=== PATIENT | male | born 1940 | race Asian ===

== ENCOUNTER → 2018-01-05 | Day surgery (SDC) | payer MEDICARE ==
[~2018-01-05] MED LIST: ASA81 MG PO; COZAAR25 MG PO; DONEPEZIL PO; FENTANYL CITRATE/PF 100MCG/2 ML INJ ONE; LIDOCAINE HCL 2% LOCAL INJ 5 ML SDV VIAL INJ ONE; METFORMIN HCL500 MG PO; PROPOFOL IV EMULSION 10 MG/ML 20 ML VIAL ONE; RISPERDAL1 MG PO; TOUJEO SQ; VALPROIC A250 MG/53; VALPROIC ACID PO; VICODIN ES TAB1 EACH PO; Z.0.ATENOLOL100 MG PO; Z.0.FLOMAX0.4 MG PO; Z.0.GLIPIZIDE10 MG PO; Z.0.JANUMET 50-1,01 PO; Z.0.LANTUS100 UNIT/1 SQ; Z.0.LEXAPRO10 MG PO; Z.0.LIPITOR40 MG PO; Z.0.PRINIVIL20 MG PO; [UNRECOGNIZED DRUG - OTHER] PO
--- OUTSIDE RECORDS SUMMARY | 2018-01-05 13:53 | XMS REPORT | Clinical Summary ---
Author Author [facility] Address Unknown Phone Unavailable Care Team Providers Care Steno Typist Name Role Phone Brandi eKnny MD PCP Allergies No Known Allergies Current Medications Prescription Sig. Disp. Refills Start End Date Status Date escitalopram (LEXAPRO) 10 Take 10 mg by mouth Active MG tablet daily. losartan (COZAAR) 25 MG Take 25 mg by mouth Active tablet daily. metFORMIN (GLUCOPHAGE) Take 500 mg by mouth 2 Active 500 mg tablet (two) times a day with meals. atorvastatin (LIPITOR) 10 Take 10 mg by mouth Active MG tablet daily. atenolol (TENORMIN) 25 MG Take 25 mg by mouth Active tablet daily. aspirin (ECOTRIN) 81 MG Take 81 mg by mouth Active enteric coated tablet daily. risperiDONE (RisperDAL) 1 Take 1 mg by mouth daily. Active MG tablet valproic acid (DEPAKENE) Take 250 mg by mouth 4 05/16/20 Discontin 250 mg capsule (four) times a day. 17 ued insulin GLARGINE (TOUJEO Inject 20 Units under the 05/16/20 Discontin SOLOSTAR) 300 unit/mL skin daily. 17 ued (1.5 mL) insulin pen valproic acid (DEPAKENE) Take 2 capsules (500 mg 120 capsule 0 06/15/20 250 mg capsule total) by mouth 2 (two) 17 17 times a day for 30 days. Active Problems Problem Noted Date Sepsis 05/09/2017 Encounters Date Type Specialty Care Team Description 05/15/2017 Anesthesia Gastroenterology Erlinda Hickman MD Event 05/15/2017 Procedure Pass Gastroenterology 05/15/2017 Surgery Gastroenterology Mert Murcia EGD with PEG placement MD Jesus 05/10/2017 Procedure Pass Critical Care Medicine 05/09/2017 [facility] Critical [facility] Medicine Free SoilBolivar valentinLelaBony Shankar, Sepsis, due to - Encounter MD unspecified organism 05/16/2017 Link Braden MD (Primary Dx); Pneumonia due to infectious organism, unspecified laterality, unspecified part of lung; Seizure disorder; Oropharyngeal dysphagia after 01/04/2017 Immunizations Name Dates Previously Given Next Due FLUCELVAX QUAD PF (0.5mL 05/11/2017 syringe) Social History Tobacco Use Types Packs/Day Years Used Date Never Smoker Alcohol Use Drinks/Week oz/Week Comments No Sex Assigned at Date Recorded Not on file Last Filed Vital Signs Vital Sign Reading Time Taken Blood Pressure 163/68 05/16/2017 12:00 PM CDT Pulse 72 05/16/2017 1:00 PM CDT Temperature 36.8 C (98.3 F) 05/16/2017 7:00 AM CDT Respiratory Rate 24 05/16/2017 1:00 PM CDT Oxygen Saturation 93% 05/16/2017 1:00 PM CDT Inhaled Oxygen - - Concentration Weight 55.2 kg (121 lb 11.1 oz) 05/14/2017 5:00 AM CDT Height 152.4 cm (5') 05/09/2017 11:00 PM CDT Body Mass Index 23.77 05/14/2017 5:00 AM CDT Plan of Treatment Health Maintenance Due Date Last Done Comments SHINGRIX VACCINE (#1) 01/02/1988 ZOSTER VACCINE 1998 PNEUMOCOCCAL 2003 POLYSACCHARIDE VACCINE AGE 65 AND OVER PNEUMOCOCCAL-13 2003 INFLUENZA VACCINE 03/14/2018 05/11/2017 Procedures Procedure Name Priority Date/Time Associated Diagnosis Comments EGD with PEG placement 05/15/2017 Sepsis, due to 12:00 PM CDT unspecified organism EEG EXTENDED 41 - 60 MINS Routine 05/10/2017 Results for this 10:56 AM CDT procedure are in the results section. after 01/04/2017 Results * POC glucose (05/16/2017 11:47 AM) Only the most recent of 68 results within the time period is included. Component Value Ref Range POC glucose 148 (H) 65 - 99 mg/dL Comment: [facility] Notified RN Meter ID: [id number] Vp Legal Affairs: Floyd Holloway Specimen Performing Laboratory [facility] DEPARTMENT OF PATHOLOGY AND GENOMIC MEDICINE [address] [place] [id number] * Estimated GFR (05/16/2017 4:30 AM) Only the most recent of 10 results within the time period is included. Component Value Ref Range GFR Non Af Amer 72 mL/min/1.73 m2 GFR Af Amer 87 mL/min/1.73 m2 Comment: Chronic kidney disease: <60 mL/min/1.73m2 Kidney failure: <15 mL/min/1.73m2 The estimated GFR is calculated from the IDMS-traceable Modification of Diet in Renal Disease Equation. The accuracy of the calculation is poor when the creatinine is normal. Calculated values >90 mL/min/1.73m2 are not reported. This equation has not been validated in children (<18 years), women, the elderly (>70 years), or ethnic groups other than Caucasians and Americans. Specimen Performing Laboratory Plasma specimen [facility] DEPARTMENT OF PATHOLOGY AND GENOMIC MEDICINE [address] [place] [id number] * CBC with platelet and differential (05/16/2017 4:30 AM) Only the most recent of 8 results within the time period is included. Component Value Ref Range WBC 10.41 4.50 - 11.00 k/uL RBC 3.71 (L) 4.40 - 6.00 m/uL HGB 11.4 (L) 14.0 - 18.0 g/dL HCT 35.0 (L) 41.0 - 51.0 % MCV 94.3 82.0 - 100.0 fL MCH 30.7 27.0 - 34.0 pg MCHC 32.6 31.0 - 37.0 g/dL RDW - SD 48.5 37.0 - 55.0 fL MPV 10.1 8.8 - 13.2 fL Platelet count 297 150 - 400 k/uL Nucleated RBC 0.00 /100 WBC Neutrophils 52.0 39.0 - 69.0 % Lymphocytes 18.9 (L) 25.0 - 45.0 % Monocytes 20.5 (H) 0.0 - 10.0 % Eosinophils 6.2 (H) 0.0 - 5.0 % Basophils 0.6 0.0 - 1.0 % Immature granulocytes 1.8 (H)Comment: "Immature granulocytes" 0.0 - 1.0 % (promyelocytes, myelocytes, metamyelocytes) Specimen Performing Laboratory Blood [facility] DEPARTMENT OF PATHOLOGY AND GENOMIC MEDICINE [address] [place] [id number] * Basic metabolic panel (05/16/2017 4:30 AM) Only the most recent of 8 results within the time period is included. Component Value Ref Range Sodium 139 135 - 148 mEq/L Potassium 4.2 3.5 - 5.0 mEq/L Chloride 102 98 - 112 mEq/L CO2 24 24 - 31 mEq/L Anion gap 13 7 - 15 mEq/L Comment: Starting from November , anion gap calculation no longer incorporates potassium. Please note the change. BUN 18 8 - 23 mg/dL Creatinine 1.0 0.7 - 1.2 mg/dL Glucose 116 (H) 65 - 99 mg/dL Calcium 8.7 (L) 8.8 - 10.2 mg/dL Specimen Performing Laboratory Plasma specimen [facility] [place] [address] * XR Chest 1 Vw Portable (05/15/2017 5:44 PM) Only the most recent of 3 results within the time period is included. Specimen Performing Laboratory [facility] [address] [place] [address] Narrative Study:XR CHEST 1 VW PORTABLE History: Pneumonia COMPARISON: May 11, 2017 IMPRESSION: A single view of the chest.Retrocardiac atelectasis with possibly small left pleural effusion unchanged. No pneumothorax.Cardiac silhouette is normal.Visualized osseous structures arestable. [facility]-[id number] Procedure Note Interface, Radiology Results Incoming - 05/15/2017 5:52 PM CDT Study:XR CHEST 1 VW PORTABLE History: Pneumonia COMPARISON: May 11, 2017 IMPRESSION: A single view of the chest. Retrocardiac atelectasis with possibly small left pleural effusion unchanged. No pneumothorax. Cardiac silhouette is normal. Visualized osseous structures are stable. [facility]-[id number] * Magnesium level (05/15/2017 4:00 AM) Only the most recent of 5 results within the time period is included. Component Value Ref Range Magnesium 2.0 1.6 - 2.4 mg/dL Specimen Performing Laboratory Plasma specimen [facility] DEPARTMENT OF PATHOLOGY AND GENOMIC MEDICINE [address] [place] [id number] * Valproic acid level (05/15/2017 4:00 AM) Only the most recent of 5 results within the time period is included. Component Value Ref Range Valproic acid 69.0 50.0 - 100.0 ug/mL Comment: Therapeutic Range: 50 - 100 ug/mL Specimen Performing Laboratory Plasma specimen [facility] DEPARTMENT OF PATHOLOGY AND GENOMIC MEDICINE [address] [place] [address] * MRI Brain Wo Contrast (05/11/2017 9:55 PM) Specimen Performing Laboratory [facility] [address] [place] [address] Narrative EXAMINATION: MRI BRAIN WO CONTRAST CLINICAL HISTORY: seizure COMPARISON:CT brain dated May 09, 2017 TECHNIQUE: Multiplanar and multisequence MRI imaging of the brain was obtained without contrast. FINDINGS: Axial diffusion weighted images of the brain shows no diffusion restriction to suggest acute ischemia. T1 images shows no intracranial mass or mass effect. Gradient images shows no abnormal hemosiderin deposition abnormality. There is no evidence of acute hemorrhage. There is prominent mineralization of the basal ganglia, bilaterally. FLAIR imaging shows moderate severe atrophy as noted on prior CT. There is also extensive FLAIR signal changes in the periventricular white matter which are confluent from chronic small vessel changes, lacunar insults and possible neurodegenerative changes and/or treatment related changes. There is moderate motion on FLAIR exam with repeat imaging performed still limited by some motion as patient had a constant tremor. No gross acute FLAIR signal lesion identified. The sulci are prominent. However, the ventricles are dilated slightly out of proportion to the sulci. Correlate for significance. This can be seen with normal pressure hydrocephalus or may be secondary to the extensive white matter disease with ex vacuum dilatation. The flow voids in the skull base are present. Visualized paranasal sinuses shows no acute air-fluid levels.Visualized soft tissue shows no gross abnormalities. Sagittal T1 images shows no midline mass lesion. The craniocervical junction is intact.Coronal images shows no midline shift or gross asymmetries. IMPRESSION: There are prominent involutional changes with white matter disease and atrophy. The ventricles are dilated slightly out of proportion to the sulci which may be due to the severe white matter disease. [id number] Procedure Note Interface, Radiology Results Incoming - 05/11/2017 11:39 PM CDT EXAMINATION: MRI BRAIN WO CONTRAST CLINICAL HISTORY: seizure COMPARISON: CT brain dated May 09, 2017 TECHNIQUE: Multiplanar and multisequence MRI imaging of the brain was obtained without contrast. FINDINGS: Axial diffusion weighted images of the brain shows no diffusion restriction to suggest acute ischemia. T1 images shows no intracranial mass or mass effect. Gradient images shows no abnormal hemosiderin deposition abnormality. There is no evidence of acute hemorrhage. There is prominent mineralization of the basal ganglia, bilaterally. FLAIR imaging shows moderate severe atrophy as noted on prior CT. There is also extensive FLAIR signal changes in the periventricular white matter which are confluent from chronic small vessel changes, lacunar insults and possible neurodegenerative changes and/or treatment related changes. There is moderate motion on FLAIR exam with repeat imaging performed still limited by some motion as patient had a constant tremor. No gross acute FLAIR signal lesion identified. The sulci are prominent. However, the ventricles are dilated slightly out of proportion to the sulci. Correlate for significance. This can be seen with normal pressure hydrocephalus or may be secondary to the extensive white matter disease with ex vacuum dilatation. The flow voids in the skull base are present. Visualized paranasal sinuses shows no acute air-fluid levels. Visualized soft tissue shows no gross abnormalities. Sagittal T1 images shows no midline mass lesion. The craniocervical junction is intact. Coronal images shows no midline shift or gross asymmetries. IMPRESSION: There are prominent involutional changes with white matter disease and atrophy. The ventricles are dilated slightly out of proportion to the sulci which may be due to the severe white matter disease. [id number] * XR Abdomen 1 Vw Portable (05/11/2017 6:50 PM) Only the most recent of 3 results within the time period is included. Specimen Performing Laboratory [facility] [address] [place] [id number] Narrative EXAM:XR ABDOMEN 1 VW PORTABLE HISTORY:Check dobhoff placement COMPARISON:05/11/2017 at 1630 hours IMPRESSION: 1. The Dobbhoff tube has been advanced slightly and now terminates in the expected location of the gastric antrum or proximal duodenum. 2. Bowel gas pattern is nonobstructive. 3. Retained contrast material seen throughout the colon. 4. The visualized osseous structures are intact. [id number] Procedure Note Interface, Radiology Results Incoming - 05/11/2017 6:55 PM CDT EXAM: XR ABDOMEN 1 VW PORTABLE HISTORY: Check dobhoff placement COMPARISON: 05/11/2017 at 1630 hours IMPRESSION: 1. The Dobbhoff tube has been advanced slightly and now terminates in the expected location of the gastric antrum or proximal duodenum. 2. Bowel gas pattern is nonobstructive. 3. Retained contrast material seen throughout the colon. 4. The visualized osseous structures are intact. [id number] * Hemoglobin A1c (05/11/2017 4:15 AM) Component Value Ref Range Hemoglobin A1C 6.8 (H) 4.0 - 5.6 % Comment: HbA1c cutoffs for diagnosing diabetes: 4.0% - 5.6%=normal 5.7% - 6.4%=increased risk for diabetes (prediabetes) >=6.5%=diabetes Goals for glycemic control (ADA 2016) < 7.0% Target for non adults with diabetes. More or less stringent targets may be appropriate for individual patients. <7.5% Target for Children and adolescents with type 1 diabetes. Specimen Performing Laboratory Blood [facility] DEPARTMENT OF PATHOLOGY AND GENOMIC MEDICINE [address] [place] [phone] * Phosphorus level (05/11/2017 4:00 AM) Component Value Ref Range Phosphorus 3.5 2.4 - 4.5 mg/dL Specimen Performing Laboratory Plasma specimen [facility] DEPARTMENT OF PATHOLOGY AND GENOMIC MEDICINE [address] [place] [id number] * Comprehensive metabolic panel (05/11/2017 4:00 AM) Only the most recent of 2 results within the time period is included. Component Value Ref Range Sodium 142 135 - 148 mEq/L Potassium 3.7 3.5 - 5.0 mEq/L Chloride 105 98 - 112 mEq/L CO2 15 (L) 24 - 31 mEq/L Anion gap 22 (H) 7 - 15 mEq/L Comment: Starting from November , anion gap calculation no longer incorporates potassium. Please note the change. BUN 11 8 - 23 mg/dL Creatinine 1.2 0.7 - 1.2 mg/dL Glucose 220 (H) 65 - 99 mg/dL Calcium 7.8 (L) 8.8 - 10.2 mg/dL Protein 5.7 (L) 6.3 - 8.3 g/dL Comment: 4.6-7.0 g/dL 1 week 4.4-7.6 g/dL 7 months-1year 5.1-7.3 g/dL 1-2 years 5.6-7.5 g/dL >3 years 6.0-8.0 g/dL 18-150 6.3-8.3 g/dL Albumin 2.1 (L) 3.5 - 5.0 g/dL A/G ratio 0.6 (L) 0.7 - 3.8 Alkaline phosphatase 37 (L) 40 - 129 U/L AST 11 10 - 50 U/L ALT 6 5 - 50 U/L Total bilirubin <0.2 0.0 - 1.2 mg/dL Specimen Performing Laboratory Plasma specimen [facility] DEPARTMENT OF PATHOLOGY AND GENOMIC MEDICINE [address] [place] [address] * ECG ED Preliminary Interpretation - NOT AN ORDER (05/10/2017 11:38 PM) Carrillo Rodrigues MD 05/10/2017 11:38 PM ECG ED Preliminary Interpretation - Not an Order Performed by: BOLIVAR RODRIGUES Authorized by: BOLIVAR RODRIGUES Previous ECG: Previous ECG:Unavailable Interpretation: Interpretation: normal Rate: ECG rate:111 ECG rate assessment: tachycardic Rhythm: Rhythm: sinus rhythm and sinus tachycardia Ectopy: Ectopy: none QRS: QRS axis:Normal QRS intervals:Normal Conduction: Conduction: normal ST segments: ST segments:Normal T waves: T waves: normal * Consult to Sepsis Response Team (05/10/2017 11:38 PM) Carrillo Rodrigues MD 05/10/2017 11:38 PM Consult to Sepsis Response Team Performed by: BOLIVAR RODRIGUES Authorized by: BOLIVAR RODRIGUES Sepsis Clinical Assessment General Assessment Information Current sepsis score:5 On comfort care?: No SIRS Criteria SIRS criteria met: Altered mental status, Heart rate > 90 bpm, Respirations > 20/min and WBC > 12 K/mcL Organ Dysfunction Organ dysfunction criteria met: Lactate > 2.0 mmol/L Sepsis Assessment Clinical suspicion of infection? Yes Time of suspicion of infection:05/09/2017 7:10 PM Clinical suspicion of sepsis?: Yes Sepsis staging:Sepsis Sepsis protocol started?Yes Where did the protocol start?:ED Started Suspected Source of Infection Suspected Source of Infection: Pneumonia and UTI Other Acute Diagnoses Other Acute Diagnosis: Pneumonia Focus Exam Cardiopulmonary Exam Heart: Tachycardia Left Lung: Decreased Right Lung: Decreased Capillary Refill Capillary refill rate: Brisk, < 3 s Peripheral Pulses Left doralis pedis:Normal Right doralis pedis:Normal Left posterial tibial: Normal Right posterial tibial:Normal Left radial:Normal Right radial:Normal Skin Exam Skin exam: Pale Sepsis Related Vitals Heart rate: 109 Temperature: 98.4 F Respiratory rate: (!) 32 Blood pressure: 117/56 Altered mental status: WBC (k/uL) Date Value 05/09/2017 12.41 (H) Weight-Based Fluid Bolus Calculation The recommended weight-based bolus volume: 1,620 mL (dosing weight) Please refer to the [facility] for actual med/fluid administrations. 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 Radiation dose: 3.7 mGy FINDINGS: The patient swallowed varying consistencies of barium under direct lateral fluoroscopic evaluation. The study was performed in conjunction with speech pathology. IMPRESSION: There was silent aspiration with ultra-thin barium with the straw. No penetration or aspiration noted with thicker consistencies. Please refer to Speech Pathology report for further details. 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 Radiation dose: 3.7 mGy FINDINGS: The patient swallowed varying consistencies of barium under direct lateral fluoroscopic evaluation. The study was performed in conjunction with speech pathology. IMPRESSION: There was silent aspiration with ultra-thin barium with the straw. No penetration or aspiration noted with thicker consistencies. Please refer to Speech Pathology report for further details. [facility]-[id number] * EEG (routine) (05/10/2017 10:56 AM) Narrative EEG EXTENDED 41 - 60 MINS Date of Service:05/10/2017 Awake Recordings: The occipital dominant rhythm is 8-9 Hz. 4-7 Hz and 1.5-3 Hz activity is present intermittently in all regions. 18-22 Hz activity was present in all regions. Several episodes of right or left or bilateral arm shaking were noted without any definite associated seizure activity. Sleep Recording: No sleep was recorded. Hyperventilation: Was not performed. Photic Stimulation: Was not performed. Impression: The findings are consistent with a mild diffuse disturbance in brain function. No definite seizures occurred. ICD-10 Code: R56.9 * Lactic acid level (05/10/2017 5:10 AM) Only the most recent of 3 results within the time period is included. Component Value Ref Range Lactic acid 2.2 0.5 - 2.2 mmol/L Specimen Performing Laboratory Blood [facility] DEPARTMENT OF PATHOLOGY AND GENOMIC MEDICINE [address] [place], [place] [id number] * Respiratory pathogen panel (05/10/2017 1:24 AM) Component Value Ref Range Respiratory pathogen Negative for all pathogens tested: panel Negative for Adenovirus Negative for Coronavirus HKU1 Negative for Coronavirus NL63 Negative for Coronavirus 229E Negative for Coronavirus OC43 Negative for Human Metapneumovirus Negative for Rhinovirus/Enterovirus Negative for Influenza A Negative for Influenza A/H1 Negative for Influenza A/H3 Negative for Influenza A/H1-2009 Negative for Influenza B Negative for Parainfluenza Virus 1 Negative for Parainfluenza Virus 2 Negative for Parainfluenza Virus 3 Negative for Parainfluenza Virus 4 Negative for Respiratory Syncytial Virus Negative for Bordetella pertussis Negative for Chlamydophila pneumoniae Negative for Mycoplasma pneumoniae This real-time PCR assay detects the presence of nucleic acids (RNA or DNA) for the respiratory pathogens listed. A result of "Not-detected" does not exclude the possibility of the presence of one or more pathogens at concentrations less than the detectable limits of the assay. Comment: Specimen Information Specimen Source: Nasopharyngeal Specimen Site: aspirate Specimen Performing Laboratory Nasopharyngeal - Aspirate [facility] DEPARTMENT OF PATHOLOGY AND GENOMIC MEDICINE [address] [place] [phone] * Bedside glucose (05/09/2017 7:53 PM) Only the most recent of 2 results within the time period is included. Component Value Ref Range POC glucose 129 Specimen Performing Laboratory Blood * CT Head Wo Contrast (05/09/2017 7:06 PM) Specimen Performing Laboratory [facility] [address] [place] [id number] Narrative EXAMINATION: CT HEAD WO CONTRAST CLINICAL HISTORY: SEIZURENEW 40NO TRAUMA COMPARISON:CT brain dated February 25, 2014 TECHNIQUE: Noncontrast enhanced images of the brain were obtained from the skull base to the vertex. Both soft tissue and bone reconstruction algorithms were performed.CT imaging was performed with iterative reconstruction technique and/or automated exposure control to reduce radiation dose. FINDINGS: The brain parenchyma has no acute lesion. The pantoja-white matter differentiation is preserved. No evidence of acute intra or extra-axial hemorrhage, mass, mass effect or acute territorial infarction. There is no acute hydrocephalus. Basal cisterns are patent. There is moderate atrophy. There are extensive lucencies in the white matter from chronic small vessel changes which appear slightly progression prior exam. There are scattered lacunar insults. There are calcifications in the skull base vessels. There is no evidence of acute intracranial trauma. No acute soft tissue hematoma or laceration. Paranasal sinuses shows no acute air-fluid levels. Mastoid air cells are clear.No skull fractures or aggressive bony lesions. IMPRESSION: There are involutional changes as detailed above with no acute intracranial abnormality. [facility]-[id number] Procedure Note Hm Interface, Radiology Results Incoming - 05/09/2017 7:14 PM CDT EXAMINATION: CT HEAD WO CONTRAST CLINICAL HISTORY: SEIZURE NEW 38 NO TRAUMA COMPARISON: CT brain dated February 25, 2014 TECHNIQUE: Noncontrast enhanced images of the brain were obtained from the skull base to the vertex. Both soft tissue and bone reconstruction algorithms were performed. CT imaging was performed with iterative reconstruction technique and/or automated exposure control to reduce radiation dose. FINDINGS: The brain parenchyma has no acute lesion. The pantoja-white matter differentiation is preserved. No evidence of acute intra or extra-axial hemorrhage, mass, mass effect or acute territorial infarction. There is no acute hydrocephalus. Basal cisterns are patent. There is moderate atrophy. There are extensive lucencies in the white matter from chronic small vessel changes which appear slightly progression prior exam. There are scattered lacunar insults. There are calcifications in the skull base vessels. There is no evidence of acute intracranial trauma. No acute soft tissue hematoma or laceration. Paranasal sinuses shows no acute air-fluid levels. Mastoid air cells are clear. No skull fractures or aggressive bony lesions. IMPRESSION: There are involutional changes as detailed above with no acute intracranial abnormality. [facility]-[id number] * Urinalysis (05/09/2017 7:06 PM) Component Value Ref Range Glucose, UA Negative Negative Bilirubin, UA Negative Negative Ketones, UA Negative Negative Specific gravity, UA 1.010 1.001 - 1.035 Blood, UA Trace (A) Negative pH, UA 7.5 5.0 - 8.5 Protein, UA Negative Negative Urobilinogen, UA <2.0 <2.0 Nitrite, UA Negative Negative Leukocyte esterase, UA Negative Negative Color, UA Yellow Appearance, UA Clear Specimen Performing Laboratory Urine [facility] OF PATHOLOGY [place] [address] * Gram stain (05/09/2017 7:06 PM) Component Value Ref Range Gram stain result Rare WBC's No organisms seen Comment: Specimen Information Specimen Source: Urine Specimen Site: Catheterized Specimen Performing Laboratory Urine - Catheterized [facility] DEPARTMENT OF PATHOLOGY AND GENOMIC MEDICINE [address] [place] [address] * Urine culture (05/09/2017 7:06 PM) Component Value Ref Range Urine culture isolate No growth after 2 days. Comment: Specimen Information Specimen Source: Urine Specimen Site: Catheterized Specimen Performing Laboratory Urine - Catheterized [facility] OF PATHOLOGY AND GENOMIC MEDICINE [address] [place] [address] * Blood culture, aerobic & anaerobic (05/09/2017 6:35 PM) Only the most recent of 2 results within the time period is included. Component Value Ref Range Blood culture isolate No growth after 5 days of incubation. Comment: Specimen Information Specimen Source: Blood Specimen Site: Forearm, right Specimen Performing Laboratory Blood - Forearm, right [facility] PATHOLOGY [facility] GENOMIC MEDICINE [address] [place] [address] * Troponin, I-Stat (05/09/2017 6:17 PM) Component Value Ref Range Troponin, I-Stat 0.00 0.00 - 0.08 ng/mL Comment: 0.09 - 1.49 ng/ml May indicate increased risk of acute coronary syndrome. >=1.5 ng/ml Consistent with acute myocardial infarction. The diagnostic value of a single normal or non-diagnostic result is questionable. Serial samples at 2-6 hour intervals are required to rule out acute myocardial injury. Specimen Performing Laboratory Plasma specimen [facility] OF PATHOLOGY [place] [address] * Lactic acid, I-Stat (05/09/2017 6:17 PM) Component Value Ref Range Lactic acid, I-Stat 4.2 (HH) 0.5 - 2.2 mmol/L Comment: Results called to and read back by MICHAEL MALDONADO ([place]) at 1831 (1831 05/09/2017) by DC2_. Specimen Performing Laboratory Plasma specimen [facility] DEPARTMENT OF PATHOLOGY AND GENOMIC MEDICINE [address] [place] [id number] * Manual differential (05/09/2017 6:17 PM) Component Value Ref Range Manual differential PERFORMED Neutrophils 69.0 39.0 - 69.0 % Lymphocytes 16.0 (L) 25.0 - 45.0 % Monocytes 15.0 (H) 0.0 - 10.0 % Eosinophils 0.0 0.0 - 5.0 % Basophils 0.0 0.0 - 1.0 % Platelet slide review Sinan adequate Specimen Performing Laboratory DEPARTMENT OF PATHOLOGY AND GENOMIC MEDICINE, [facility] [address] [address] * ECG 12 lead (05/09/2017 6:11 PM) Component Value Ref Range Ventricular rate 111 Atrial rate 111 DC interval 148 QRSD interval 78 QT interval 326 QTC interval 443 P axis 1 28 QRS axis 1 50 T wave axis 30 EKG impression Sinus tachycardia-Otherwise normal ECG-No previous ECGs available- Specimen Performing Laboratory [facility] MUSE [address] [place] [id number] after 01/04/2017 Insurance Payer Benefit Subscriber ID Type Phone Address Plan / Group [facility] MEDICARE UNITEDHC xxxxxxxxx O MCR SOLUTIONS [facility] MEDICARE UNITED/CAR xxxxxxxxx O E IMPROVEMEN T [facility] Home: [phone] [facility] [place] [id number]
[2018-01-05 14:28] LABS: BASOPHILS # (AUTO) 0.1 (0.0-0.1); BASOPHILS % 0.8 % (0.0-1.0); EOSINOPHILS # (AUTO) 1.2 (0.0-0.4); EOSINOPHILS % 7.7 % (0.0-6.0); HEMATOCRIT 39.3 % (38.2-49.6); HEMOGLOBIN 13.1 g/dL (14.0-18.0); LYMPHOCYTES # (AUTO) 2.4 (1.0-3.2); MEAN CORPUSCULAR HEMOGLOBIN 30.8 pg (28-32); MEAN CORPUSCULAR HGB CONC 33.3 g/dL (31-35); MEAN CORPUSCULAR VOLUME 92.5 fL (81-99); MONOCYTES # (AUTO) 1.4 (0.2-0.8); MONOCYTES % 9.1 % (4.4-11.3); NEUTROPHILS # (AUTO) 9.9 (2.1-6.9); PLATELET COUNT 318 x10e3/uL (140-360); RED BLOOD COUNT 4.25 x10e6/uL (4.3-5.7); RED CELL DISTRIBUTION WIDTH 12.7 % (11.7-14.4)
== END | disposition home or self-care (01) ==
LOC: OR 13:51
PROVIDERS: ATTEND Internal Medicine Gastroenterology
DX: K94.23 Gastrostomy malfunction (principal); K29.70 Gastritis, unspecified, without bleeding; R13.10 Dysphagia, unspecified; K44.9 Diaphragmatic hernia without obstruction or gangrene; Y83.3 Surgical operation with formation of external stoma as the cause of abnormal reaction of the patient, or of later complication, without mention of misadventure at the time of the procedure; G40.909 Epilepsy, unspecified, not intractable, without status epilepticus; I10 Essential (primary) hypertension; E11.9 Type 2 diabetes mellitus without complications; R05 Cough; Z79.82 Long term (current) use of aspirin; Z79.84 Long term (current) use of oral hypoglycemic drugs; Z86.73 Personal history of transient ischemic attack (TIA), and cerebral infarction without residual deficits
CPT/HCPCS: 36415; 43246; 82948; 85025; 93005; J2001